=== PATIENT | female | born 1965 | race American Indian/Alaskan Native ===

== ENCOUNTER 2016-11-08 09:28 | Emergency (ER) | payer MEDICAID ==
[2016-11-08 10:08] VITALS: BP 134/101
--- NOTE | 2016-11-08 10:31 | EDM.PDOC ---
ED HPI LOWER BACK PAIN/INJURY - General Chief Complaint: Back Pain or Injury Stated Complaint: BACK PAIN Time Seen by Provider: 11/08/16 10:05 Source: Reports: Patient History Limitations: Reports: No limitations - History of Present Illness INITIAL COMMENTS - FREE TEXT/NARRATIVE: This patient said that fell 2 days ago and had some right-sided lower lumbar pain. She said it exacerbated because she's been sleeping outside because she is homeless. She said last night on concrete. She also complains of a cough today but it's nonproductive and she hasn't had any fever. She also complains of chronic pain in her left elbow. She's supposed to get a elbow replacement in about a month. She doesn't have anything at times taking for pain. She mentioned that her previous doctor would give her Percocet but is no longer able to prescribe this. - Related Data Allergies/ADRs: Allergies Allergy/AdvReac Type Severity Reaction Status Date / Time codeine Allergy Intermediate Itching Verified 11/08/16 09:50 Penicillins Allergy Intermediate Rash Verified 11/08/16 09:50 paroxetine HCl [From Paxil] Allergy Rash Verified 11/08/16 09:50 varenicline tartrate Allergy Cannot Verified 11/08/16 09:50 [From Chantix] Remember venlafaxine HCl Allergy Numbness Verified 11/08/16 09:50 [From Effexor] ziprasidone HCl [From Geodon] Allergy Rash Verified 11/08/16 09:50 ziprasidone mesylate Allergy Rash Verified 11/08/16 09:50 [From Geodon] amitriptyline AdvReac Seizure Verified 11/08/16 09:50 bupropion HCl AdvReac Insomnia Verified 11/08/16 09:50 [From Wellbutrin] mirtazapine [From Remeron] AdvReac Insomnia Verified 11/08/16 09:50 tramadol AdvReac Seizure Verified 11/08/16 09:50 Home Meds: Home Meds Gabapentin [Neurontin] 600 mg PO QID 04/19/13 [History] busPIRone HCl [busPIRone] 30 mg PO BID 11/19/13 [History] Doxepin [SINEquan] 50 mg PO BEDTIME 06/08/15 [History] Pantoprazole [ProTONIX] 40 mg PO DAILY 06/08/15 [History] Hydrochlorothiazide/Lisinopril [Lisinopril-HCTZ 20-25 MG] 20 - 25 mg PO DAILY [History] Past Medical History HEENT History: Reports: Otitis media Other HEENT History: Refuses to answer Cardiovascular History: Reports: High cholesterol, Hypertension Other Cardiovascular History: Refuses to answer Respiratory History: Reports: Bronchitis, recurrent Other Respiratory History: Refuses to answer Gastrointestinal History: Reports: Cholelithiasis, GERD Other Gastrointestinal History: Refuses to answer Genitourinary History: Reports: None Other Genitourinary History: Refuses to answer 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: , Spontaneous Other OB/BYN History: Patient refuses to answer Musculoskeletal History: Reports: Arthritis, Back pain, chronic, Fibromyalgia, Osteoporosis Neurological History: Reports: Seizure Psychiatric History: Reports: ADHD, Anxiety, Bipolar, Panic attack, Suicide attempt Other Psychiatric History: Patient refuses to answer Endocrine/Metabolic History: Reports: Obesity/BMI 30+ Other Hematologic History: Patient refuses to answer Other Oncologic History: Patient refuses to answer - Infectious Disease History Infectious Disease History: Reports: Chicken pox, Shingles - Past Surgical History GI Surgical History: Reports: Appendectomy, Cholecystectomy, EGD, Hernia, abdominal, Other (see below) Other GI Surgeries/Procedures: panniculectomy Female Surgical History: Reports: section, Hysterectomy, Salpingo- oophorectomy Musculoskeletal Surgical History: Reports: Other (see below) Other Musculoskeletal Surgeries/Procedures:: left elbow surgery Social & Family History - Family History HEENT: Reports: Cataract Other HEENT Family History: Patient refuses to answer Cardiac: Reports: Arrhythmia, Heart failure, Pacemaker Other Respiratory Family Hisory: Patient refuses to answer GI: Reports: None Other Family History: Patient refuses to answer Musculoskeletal: Reports: Arthritis, Back pain, chronic, Fibromyalgia, Gout Other Musculoskeletal Family History: Patient refuses to answer Neurological: Reports: CVA Psychiatric: Reports: ADHD, Anxiety, Bipolar, Depression, Panic attack, Suicide attempt Other Psychiatric Family History: Patient refuses to answer Other Hematologic Family History: Patient refuses to answer Dermatologic: Reports: None Oncologic: Reports: None, Other (see below) Other Oncologic Family History: aunt and other family members have from cancer - Tobacco Use Smoking Status *Q: Current Every Day Smoker Years of Tobacco use: 40 Packs/Tins Daily: 0.5 Used Tobacco, but Quit: No Month Tobacco Last Used: August Second Hand Smoke Exposure: Yes - Caffeine Use Caffeine Use: Reports: None - Alcohol Use Days Per Week of Alcohol Use: 0 - Recreational Drug Use Recreational Drug Use: No Drug Use in Last 12 Months: No Recreational Drug Type: Reports: Marijuana/Hashish Recreational Drug Use Frequency: Daily ED ROS GENERAL - Review of Systems Review Of Systems: See Below Constitutional: Denies: fever, chills HEENT: Reports: No symptoms Respiratory: Reports: Cough Cardiovascular: Reports: No symptoms Endocrine: Reports: no symptoms GI/Abdominal: Reports: No symptoms : Reports: no symptoms Musculoskeletal: Reports: other (See HPI) Neurological: Reports: No Symptoms ED EXAM,LOWER BACK PAIN/INJURY - Physical Exam Exam: See Below Exam Limited By: No limitations General Appearance: alert, no apparent distress, obese Respiratory/Chest: lungs clear Cardiovascular: regular rate, rhythm, no murmur Extremities: other (The back shows good range of motion. There some mild tenderness to the right lower lumbar paraspinous muscles but no palpable spasm. There's no evidence of any kind of leg weakness. She has a normal gait. There is a well-healed scar to the left elbow generally over the area of the lateral malleolus it's mildly tender in that area there is no erythema ecchymosis or swelling. There is good range of motion.) Course - Vital Signs Last Recorded V/S: Last Vital Signs Temp 36.0 C 11/08/16 10:06 Pulse 83 11/08/16 10:06 Resp 16 11/08/16 10:06 BP 134/101 H 11/08/16 10:06 Pulse Ox 94 L 11/08/16 10:06 - Orders/Labs/Meds Meds: Medications Discontinued Medications Generic Name Dose Route Start Last Admin Trade Name Freq PRN Reason Stop Dose Admin Acetaminophen 650 mg 11/08/16 10:32 Tylenol PO 11/08/16 10:33 NOW ONE Ibuprofen 400 mg 11/08/16 10:32 Motrin PO 11/08/16 10:33 ONETIME ONE Departure - Departure Time of Disposition: 10:27 Disposition: Home, Self-Care 01 Condition: fair Clinical Impression: Low back pain, Coughing, Left elbow pain Referrals: Jonatan Hawkins Sr, MD [Primary Care Provider] - Forms: ED Department Discharge Additional Instructions: For pain take acetaminophen (Tylenol) 325 mg one or 2 tablets every 4 hours. Do not exceed this dosage since excess Tylenol can damage your liver. You may also take at the same time ibuprofen (Motrin or Advil) 200 mg one or 2 tablets every 8 hours. Sometimes this can upset your stomach. For cough use the guaifenesin/DM 2 teaspoons every 4 hours as needed. Return to the ER if needed.
[2016-11-08] MEDS ORDERED: Ibuprofen 400 MG Tab PO ONE (10:32)
[2016-11-08] MEDS ORDERED: Acetaminophen 325 MG Tab PO ONE (10:32)
== END 2016-11-08 10:50 | disposition home or self-care (01) ==
LOC: JP.ED 09:28
DX: M54.5 Low back pain (principal); M25.522 Pain in left elbow; R05 Cough; E78.00 Pure hypercholesterolemia, unspecified; I10 Essential (primary) hypertension; K21.9 Gastro-esophageal reflux disease without esophagitis; M19.90 Unspecified osteoarthritis, unspecified site; F41.9 Anxiety disorder, unspecified; E66.9 Obesity, unspecified; F17.210 Nicotine dependence, cigarettes, uncomplicated; Z79.899 Other long term (current) drug therapy; Z88.5 Allergy status to narcotic agent; Z88.8 Allergy status to other drugs, medicaments and biological substances; Z90.49 Acquired absence of other specified parts of digestive tract; Z90.710 Acquired absence of both cervix and uterus; Z88.0 Allergy status to penicillin
CPT/HCPCS: 99283; A9270

== ENCOUNTER 2017-01-31 06:18 | Day surgery (SDC) | payer MEDICAID ==
[2017-01-31] MEDS ORDERED: Sodium Chloride 0.9% 1,000 ML IV SCH (07:45)
[2017-01-31] MEDS ORDERED: Propofol 200 MG/20 ML SDV ONE (07:59)
[2017-01-31] MEDS ORDERED: fentaNYL 100 MCG/2 ML SDV ONE (07:59)
[2017-01-31] MEDS ORDERED: Midazolam 1 MG/ML 2 ML SDV ONE (08:00)
[2017-01-31] MEDS ORDERED: Lidocaine 1% 2 ML ONE (08:14)
[2017-01-31 09:16] VITALS: BP 119/70
--- NOTE | 2017-02-01 14:24 | PROC ---
DATE OF PROCEDURE: 01/31/2017 INDICATIONS: Anastasiya is a 51-year-old female, who comes in for an esophagogastroduodenoscopy with possible biopsy and/or dilatation. The risks and benefits were explained for the procedure. PROCEDURE IN DETAIL: The patient was taken to the OR. Anesthesia was given by nurse dining service supervisor. During the procedure, used 100 mcg of fentanyl, 2 mg of Versed, and 200 mg of propofol. The Olympus 180 scope was used, it was placed into the pharynx, into esophagus without difficulty and advanced under direct vision. We did get into the stomach and advanced into the first and second part of the duodenum. Upon retraction of the tube, noted no duodenal erythema, no abnormalities, no ulcers. The tube was brought back into the stomach which revealed mild erythema. Biopsy was done for Helicobacter pylori, CLOtest. The greater and lesser curvature, antrum, and fundus revealed no abnormality. Tube was withdrawn from the stomach, and the GE junction was identified. There was no significant stenosis noted in the esophagus, and the esophageal mucosa was unremarkable. The vocal cords moved symmetrically. The tube was removed. The patient tolerated the procedure well. Preoperative: Abdominal pain. Postoperative: No duodenal, gastric, or esophageal pathology except for mild erythema of the esophagus. Biopsy pending for Helicobacter pylori, CECILIA test. Jonatan Hawkins MD /[id number]
== END 2017-01-31 09:35 | disposition home or self-care (01) ==
LOC: JP.SDS 06:18
PROVIDERS: ATTEND Internal Medicine
DX: K22.8 Other specified diseases of esophagus (principal); I10 Essential (primary) hypertension; F41.9 Anxiety disorder, unspecified; F32.9 Major depressive disorder, single episode, unspecified; F31.9 Bipolar disorder, unspecified; Z88.0 Allergy status to penicillin; Z88.8 Allergy status to other drugs, medicaments and biological substances
CPT/HCPCS: 43239; 87081; J2250; J2704; J3010; J7040